=== PATIENT | female | born 1960 ===

== ENCOUNTER 2022-03-02 15:51 | Emergency (ER) | payer SELFPAY ==
[~2022-03-02] VITALS: Ht 165.1 cm; Wt 68.2 kg
[2022-03-02 16:10] VITALS: BP 117/86
== END 2022-03-02 23:32 | disposition left against medical advice (07) ==
LOC: ER 15:51 → EDSEX 15:51 → EDBD 15:51 → ER 23:32
DX: R07.89 Other chest pain (principal); Z53.21 Procedure and treatment not carried out due to patient leaving prior to being seen by health care provider; V43.52XA Car driver injured in collision with other type car in traffic accident, initial encounter; Y93.89 Activity, other specified; Y92.410 Unspecified street and highway as the place of occurrence of the external cause; Y99.8 Other external cause status
CPT/HCPCS: 93005